=== PATIENT | male | born 1985 | race Asian ===

== ENCOUNTER 2020-12-29 08:00 | Outpatient (CLI) | payer MEDICARE | END 2020-12-29 23:59 | disposition home or self-care (01) | LOC: LAB.R 08:00 | PROVIDERS: ATTEND Family Medicine | DX: B82.0 Intestinal helminthiasis, unspecified (principal) | CPT/HCPCS: 81599; 87177; 87209 ==

== ENCOUNTER 2024-02-15 08:00 | Outpatient (CLI) | payer MEDICARE, MEDICAID | END 2024-02-15 23:59 | disposition home or self-care (01) | LOC: LAB 08:00 | PROVIDERS: ATTEND Registered Nurse | DX: R82.998 Other abnormal findings in urine (principal) | CPT/HCPCS: 87086 ==